=== PATIENT | male | born 1970 | race Caucasian/White ===

== ENCOUNTER 2018-07-31 13:13 | Emergency (ER) | payer SELFPAY ==
[2018-07-31 13:27] VITALS: O2SAT 100
--- NOTE | 2018-07-31 14:14 | ED PDOC ---
HPI: Chest Pain Time Seen by Provider: 07/31/18 13:36 Chief Complaint (Nursing): Chest Pain History Per: Patient History/Exam Limitations: no limitations (This is a patient who presents to the ER for evaluation of intermittent SSCP that occurs 5-6 times per day. It happens without association to activity or stress. He has been able to do an hour of cardio type exercise 3 times this past week without provoking chest pain. He recalls having been seen at a [facility] country recently during business travel for chest pain. He recalls having been told that the EKG was normal but that he was recommended for a catheterization the next day. However, because this conflicted with his return flight to the . This was able 3 weeks ago. Since then he not sought followup with the doctor that he sees near [place]. In addition, he is also concerned about a medial right thigh pain today that has improved since arrival. He also reports have right arm numbness last night that has now resolved.) Past Medical History Reviewed: Historical Data, Nursing Documentation, Vital Signs Vital Signs: Last Vital Signs Temp 98.1 F 07/31/18 13:21 Pulse 75 07/31/18 13:54 Resp 15 07/31/18 13:54 BP 128/89 07/31/18 13:54 Pulse Ox 100 07/31/18 13:54 - Surgical History Surgical History: No Surg Hx - Family History Family History: States: CAD (father of heart attack in his late 50's) - Allergies Allergies/Adverse Reactions: Allergies Allergy/AdvReac Type Severity Reaction Status Date / Time No Known Allergies Allergy Verified 07/31/18 13:21 SABRINA Risk Score for UA/NSTEMI - SABRINA Risk Score Age > 64: NO 3 or more CAD Risk Factors: NO Known CAD (Stenosis greater than 50%): NO Aspirin use in past 7 days: NO Severe Angina: NO EKG ST changes greater than 0.5mm: NO Positive Cardiac Marker: NO SABRINA Score: 0 Risk %: 5% Review of Systems ROS Statement: Except As Marked, All Systems Reviewed And Found Negative Constitutional: Negative for: Fever Cardiovascular: Positive for: Chest Pain Respiratory: Positive for: Shortness of Breath Musculoskeletal: Positive for: Leg Pain Neurological: Positive for: Numbness (right arm - last night - resolved) Physical Exam - Reviewed Nursing Documentation Reviewed: Yes Vital Signs Reviewed: Yes - Physical Exam Appears: Positive for: Well, Non-toxic, No Acute Distress Head Exam: Positive for: ATRAUMATIC, NORMAL INSPECTION, NORMOCEPHALIC Skin: Positive for: Normal Color, Warm, DRY Eye Exam: Positive for: EOMI, Normal appearance, PERRL ENT: Positive for: Normal ENT Inspection Neck: Positive for: Normal, Painless ROM Cardiovascular/Chest: Positive for: Regular Rate, Rhythm Respiratory: Positive for: CNT, Normal Breath Sounds Gastrointestinal/Abdominal: Positive for: Normal Exam, Soft Back: Positive for: Normal Inspection Extremity: Positive for: Normal ROM Neurologic/Psych: Positive for: Alert, Oriented - ECG ECG: Positive for: Viewed By Me ECG Rhythm: Positive for: Normal QRS Interpretation Of ECG: normal O2 Sat by Pulse Oximetry: 100 Disposition - Clinical Impression Clinical Impression: Numbness and tingling of right upper extremity, Atypical chest pain - Patient ED Disposition Is Patient to be Admitted: Transfer of Care Doctor Will See Patient In The: Office Counseled Patient/Family Regarding: Diagnosis, Need For Followup - Disposition Disposition: Transfer of Care Disposition Time: 15:04 Condition: STABLE Instructions: Chest Pain Forms: [employer] (U[place]ayan) Patient Signed Over To: Sera Harp Present On Arrival: None
[2018-07-31 15:01] LABS: BASO % 0.2 % (0.0-2.0); EOS % 0.4 % (0.0-4.0); HEMOGLOBIN 12.3 g/dL (12.0-18.0); LYMPH # 2.5 K/uL (1.0-4.3); LYMPH % 34.1 % (20.0-40.0); MEAN CELL VOLUME 64.1 fl (80.0-94.0); MEAN CORPUSCULAR HEMOGLOBIN 19.7 pg (27.0-31.0); MEAN CORPUSCULAR HGB CONC 30.7 g/dL (33.0-37.0); MEAN PLATELET VOLUME 8.5 fl (7.2-11.7); MONO # 0.5 K/uL (0.0-0.8); MONO % 7.3 % (0.0-10.0); NEUT # 4.2 K/uL (1.8-7.0); NRBC % 0.1 % (0.0-0.0); RBC 6.27 Mil/uL (4.40-5.90); RED CELL DISTRIBUTION WIDTH 16.2 % (11.5-14.5); WHITE BLOOD COUNT 7.2 K/uL (4.8-10.8)
[2018-07-31 15:34] LABS: ALB/GLOB RATIO 1.2 (1.0-2.1); ALT/SGPT 232 U/L (21-72); AST/SGOT 740 U/L (17-59); BLOOD UREA NITROGEN 9 mg/dl (9-20); CALCIUM 10.1 mg/dL (8.4-10.2); GFR NON-AFRICAN AMERICAN > 60
--- NOTE | 2018-07-31 15:34 | RAD ---
Date of service: 07/31/2018 HISTORY: chest pain COMPARISON: No prior. TECHNIQUE: Chest PA and lateral FINDINGS: LUNGS: No active pulmonary disease. PLEURA: No significant pleural effusion identified. No pneumothorax apparent. CARDIOVASCULAR: No aortic atherosclerotic calcification present. Normal cardiac size. No pulmonary vascular congestion. OSSEOUS STRUCTURES: No significant abnormalities. VISUALIZED UPPER ABDOMEN: Normal. OTHER FINDINGS: None. IMPRESSION: No active disease.
--- NOTE | 2018-07-31 17:12 | CT ---
Date of service: 07/31/2018 PROCEDURE: CT HEAD WITHOUT CONTRAST. HISTORY: RIGHT arm/leg weakness COMPARISON: None available. TECHNIQUE: Axial computed tomography images were obtained through the head/brain without intravenous contrast. Radiation dose: Total exam DLP = 811.04 mGy-cm. This CT exam was performed using one or more of the following dose reduction techniques: Automated exposure control, adjustment of the mA and/or kV according to patient size, and/or use of iterative reconstruction technique. FINDINGS: HEMORRHAGE: No intracranial hemorrhage. BRAIN: No mass effect or edema. No atrophy or chronic microvascular ischemic changes. VENTRICLES: Unremarkable. No hydrocephalus. CALVARIUM: Unremarkable. PARANASAL SINUSES: Unremarkable as visualized. No significant inflammatory changes. MASTOID AIR CELLS: Unremarkable as visualized. No inflammatory changes. OTHER FINDINGS: None. IMPRESSION: Normal CT of the Head.
--- NOTE | 2018-07-31 17:28 | ED PDOC ---
- Laboratory Results Result Diagrams: 07/31/18 14:50 07/31/18 14:50 - ECG O2 Sat by Pulse Oximetry: 100 (RA) Pulse Ox Interpretation: Normal Medical Decision Making Medical Decision Making: Time: 15:00 Patient endorsed to me by Dr. Ontiveros. Patient having intermittent chest pain for a month reported right arm and leg parasthesias since last night. Patient pending ER workup, reassessment and final disposition. 16:30 Labs demonstrate elevated trans aminases, otherwise no clinical significant abnormalities. On reevaluation patient continues to report parasthesias. Additional labs, head CT and ultrasound ordered for further evaluation. CT Head: FINDINGS: HEMORRHAGE: No intracranial hemorrhage. BRAIN: No mass effect or edema. No atrophy or chronic microvascular ischemic changes. VENTRICLES: Unremarkable. No hydrocephalus. CALVARIUM: Unremarkable. PARANASAL SINUSES: Unremarkable as visualized. No significant inflammatory changes. MASTOID AIR CELLS: Unremarkable as visualized. No inflammatory changes. OTHER FINDINGS: None. IMPRESSION: Normal CT of the Head. Ultrasound: FINDINGS: LIVER: Measures 12 cm in length. Liver has mild coarse echogenicity of the liver parenchyma. No mass. No intrahepatic bile duct dilatation. Left liver lobe was not adequately seen due to bowel gas. GALLBLADDER: Common bile duct measures 3.5 millimeters. Gallbladder shows no evidence of gallstones or gallbladder wall thickening. No appreciable sonographic Neville's sign was elicited. COMMON BILE DUCT: Measures 3.5 mm. No stones. No dilatation. PANCREAS: Pancreas was limited due to overlying bowel gas. Body of the pancreas is normal in outline. Head and tail of the pancreas were obscured by bowel gas. RIGHT KIDNEY: Measures 10.2 cm in length. Normal echogenicity. No calculus, mass, or hydronephrosis. AORTA: Limited by bowel gas. No significant atherosclerotic plaque seen. No aneurysm noted. IVC: Limited by bowel gas. No IVC dilatation seen. OTHER FINDINGS: None . IMPRESSION: No evidence of gallstones or acute cholecystitis. No appreciable common bile duct or intrahepatic ductal dilatation. Mild coarse echotexture of the liver which may suggest fatty infiltration. Suboptimal evaluation of the pancreas, IVC, and aorta by bowel gas. DW pt findings and plan of care. Strongly recommended PMD followup and decreased intensity of exercise program until reevaluated All questions/concerns answered/addressed. Scribe Attestation: Documented by, Razia Burns acting as a scribe for Sera Harp MD. Provider Scribe Attestation: All medical record entries made by the Scribe were at my direction and personally dictated by me. I have reviewed the chart and agree that the record accurately reflects my personal performance of the history, physical exam, medical decision making, and the department course for this patient. I have also personally directed, reviewed, and agree with the discharge instructions and disposition. Disposition - Clinical Impression Clinical Impression: Atypical chest pain, Paresthesia, Elevated transaminase level, Chest pain - POA Present On Arrival: None - Disposition Referrals: Becka Frankel [Outside] (FOLLOW UP WITH YOUR PMD OR [facility] FOR FURTHER EVALUATION AND TREATMENT) Disposition: Routine/Home Disposition Time: 18:00 Condition: STABLE Instructions: Chest Pain That Is Not Caused by the Heart (DC), Paresthesias (DC )
--- NOTE | 2018-07-31 17:41 | US ---
Date of service: 07/31/2018 HISTORY: elevated LFTs COMPARISON: None. TECHNIQUE: Real-time transabdominal ultrasound examination of the right upper quadrant was performed. Examination is limited by overlying bowel gas.. FINDINGS: LIVER: Measures 12 cm in length. Liver has mild coarse echogenicity of the liver parenchyma. No mass. No intrahepatic bile duct dilatation. Left liver lobe was not adequately seen due to bowel gas. GALLBLADDER: Common bile duct measures 3.5 millimeters. Gallbladder shows no evidence of gallstones or gallbladder wall thickening. No appreciable sonographic Neville's sign was elicited. COMMON BILE DUCT: Measures 3.5 mm. No stones. No dilatation. PANCREAS: Pancreas was limited due to overlying bowel gas. Body of the pancreas is normal in outline. Head and tail of the pancreas were obscured by bowel gas. RIGHT KIDNEY: Measures 10.2 cm in length. Normal echogenicity. No calculus, mass, or hydronephrosis. AORTA: Limited by bowel gas. No significant atherosclerotic plaque seen. No aneurysm noted. IVC: Limited by bowel gas. No IVC dilatation seen. OTHER FINDINGS: None . IMPRESSION: No evidence of gallstones or acute cholecystitis. No appreciable common bile duct or intrahepatic ductal dilatation. Mild coarse echotexture of the liver which may suggest fatty infiltration. Suboptimal evaluation of the pancreas, IVC, and aorta by bowel gas.
[2018-07-31 18:12] LABS: INR 1.1; PROTHROMBIN TIME 12.7 Seconds (9.8-13.1)
[2018-07-31 18:14] LABS: PARTIAL THROMBOPLASTIN TIME 30.9 Seconds (25.6-37.1)
[2018-07-31 18:42] VITALS: BP 108/74; PULSE 84; RESP 17; TEMP 99.2
--- NOTE | 2018-08-01 10:12 | CARD ---
APPROVED REPORT Date of service: 07/31/2018 EKG Measurement Heart [id number] CO [id number] <Conclusion> Normal sinus rhythm Normal Electrocardiogram
== END 2018-07-31 18:44 | disposition home or self-care (01) ==
LOC: H.ER 13:13
DX: R07.89 Other chest pain (principal); R20.2 Paresthesia of skin; R74.0 Nonspecific elevation of levels of transaminase and lactic acid dehydrogenase [LDH]